=== PATIENT | male | born 1995 | race Caucasian/White ===

== ENCOUNTER 2021-11-13 15:21 | Emergency (ER) | payer OTHER ==
--- OUTSIDE RECORDS SUMMARY | 2021-11-13 15:25 | XMS REPORT | Continuity of Care Document ---
:1995 Author Organization [facility] t Address [address] [place] [address] Care Team Providers Name Role Phone NONE Primary Care Physician Unavailable SALTY CARTER Attending Clinician Unavailable DR GABRIEL Attending Clinician Unavailable MEENAKSHI Attending Clinician Unavailable TEMITOPE Attending Clinician Unavailable MEENAKSHI Attending Clinician Unavailable SALTY CARTER Admitting Clinician Unavailable DR GABRIEL Admitting Clinician Unavailable MEENAKSHI Admitting Clinician Unavailable TEMITOPE Admitting Clinician Unavailable DR KELLY Admitting Clinician Unavailable Payers Payer Name Policy Type Policy Number Effective Date Expiration Date S jayden [id number] 1957 00:00:00 Problems Condition Condition Condition Status Onset Resolution Last Treating Co mments Source Name Details Category Date Date Treatment Clinician Date Upper Upper Problem Active [facility] resp[facility] respirator 7-12 Rufina kes y y 00:00: Memoria infection infection 00 l (LUF/LI V/SA) Allergic All[facility] Problem [facility] (LUF/LI V/SA) Pharyngiti Pharyngiti Problem [facility] (LUF/LI V/SA) Chest pain Chest pain Problem [facility] l (LUF/LI V/SA) Upper Upper Problem Active [facility] respirator respirator 2-20 Rufina kes y y 00:00: Memoria infection infection 00 l (LUF/LI V/SA) Viral Viral Problem Active [facility] syndrome syndrome 2-20 [facility] 00:[facility]: [facility] 00 l (LUF/LI V/SA) Acute Acute Problem Active [facility] bronchitis bronchitis 1-08 Rufina kes 00:00: Memoria 00 l (LUF/LI V/SA) Bronchitis Bronchitis Problem Active 2018-[address] [facility]10 [facility]: [facility] 00 l (LUF/LI V/SA) Gastritis Gastritis Problem Active 2018-[address] [facility]10 [facility] 00:[facility] l (LUF/LI V/SA) Pain in Pain in Problem Active [facility] throat throat 8-18 [facility] l (LUF/LI V/SA) Constipati Constipati Problem Active [facility] on on 6-29 [facility] 00:[facility]: [facility] 00 l (LUF/LI V/SA) Costal Costal Problem Active [facility] chondritis chondritis 4-25 Rufina kes 00:00: Memoria 00 l (LUF/LI V/SA) Sprain of Sprain of Problem Active 2017-[address] [facility] foot foot 1-01 [facility] l (LUF/LI V/SA) Backache Backache Problem [facility] l (LUF/LI V/SA) Streptococ Streptococ Problem Active [facility] kirill sore kirill sore 2-14 [facility] throat throat 00:00: Memoria 00 l (LUF/LI V/SA) Viral Viral Problem Active 2016-[address] [facility] [address] gastroente gastroente 0-06 Rufina kes ritis ritis 00:00: Memoria 00 l (LUF/LI V/SA) Nausea, Nausea, Problem Active 2016-[address] [facility] vomiting vomiting 0-06 [facility] and and 00:00: Memoria diarrhea diarrhea 00 l (LUF/LI V/SA) Allergies, Adverse Reactions, Alerts Allergy Allergy Status Severity Reaction(s) Onset Inactive Treating Comm ents Source Name Type Date Date Clinician Penicill DA Active Unknown [facility] (LUF/LI V/SA) Social History Smoking Status Start Date Stop Date Source Never smoker [facility] Mem orial (LUF/KAUSHIK/SA) Medications Ordered Filled Start Stop Current Ordering Indication Dosage Frequency Signature Comments Components Source Medication Medication Date Date Medication? Clinician (SIG) Name Name albuterol albuterol Yes [address] [facility] (LUF/LI V/SA) albuterol albuterol Yes 2.5mg 4xD [facility] (LUF/LI V/SA) azithromyci azithromyci Yes [address] [facility] (LUF/LI V/SA) azithromyci azithromyci Yes 500mg 1xD [facility] n 500 MG n 500 MG [facility] Oral Tablet Oral Tablet M emoria l (LUF/LI V/SA) bromphenira bromphenira Yes 7.5mL Q5.00H [facility] maleate 0.4 maleate 0.4 M emoria MG/ML / MG/ML / l dextrometho dextrometho ( LUF/LI rphan rphan V/SA) hydrobromid hydrobromid e 2 MG/ML / e 2 MG/ML / pseudoephed pseudoephed rine rine hydrochlori hydrochlori de 6 MG/ML de 6 MG/ML Oral Oral Solution Solution cephalexin cephalexin Yes 500mg 3xD [facility] (LUF/LI V/SA) codeine codeine Yes 10mL Q5.00H [facility] phosphate 2 phosphate 2 L ukes MG/ML / MG/ML / Memoria guaifenesin guaifenesin l 20 MG/ML 20 MG/ML (LUF/LI Oral Oral V/SA) Solution Solution codeine codeine Yes 7.5mL Q5.00H [facility] phosphate 2 phosphate 2 L ukes MG/ML / MG/ML / Memoria guaifenesin guaifenesin l 20 MG/ML 20 MG/ML (LUF/LI Oral Oral V/SA) Solution Solution cyclobenzap cyclobenzap Yes 10mg 3xD [facility] rine rine [facility] (LUF/LI V/SA) epinephrine epinephrine Yes .3mg [facility] (LUF/LI V/SA) ibuprofen ibuprofen Yes 800mg 3xD [facility] 800 MG Oral 800 MG Oral L ukes Tablet Tablet Memoria l (LUF/LI V/SA) ondansetron ondansetron Yes 4mg 4xD [facility] (LUF/LI V/SA) prednisone prednisone Yes 50mg 1xD [facility] 50 MG Oral 50 MG Oral Leonie es Tablet Tablet Memoria l (LUF/LI V/SA) albuterol albuterol Yes [address] [facility] every 4 to [facility] 6 hours as Memoria needed. l (as needed (LUF/LI for V/SA) shortness of breath or wheezing) albuterol albuterol Yes 2.5mg 4xD inhaled [address] times per [facility] day as Memoria needed. l (as needed (LUF/LI for V/SA) shortness of breath or wheezing) azithromyci azithromyci Yes [address] [facility] n n directed [facility] on dose Memoria pack (take l 500 mg (LUF/LI today (day V/SA) 1), then 250 mg for 4 days (days 2-5)) azithromyci azithromyci Yes 500mg 1xD orally [facility] n 500 MG n 500 MG daily [facility] Oral Tablet Oral Tablet M emoria l (LUF/LI V/SA) bromphenira bromphenira Yes 7.5mL Q5.00H orally [facility] mine mine every 4 to [facility] maleate 0.4 maleate 0.4 6 hours as Memoria MG/ML / MG/ML / needed. l dextrometho dextrometho (as needed (LUF/LI rphan rphan for cold V/SA) hydrobromid hydrobromid symptoms) e 2 MG/ML / e 2 MG/ML / pseudoephed pseudoephed rine rine hydrochlori hydrochlori de 6 MG/ML de 6 MG/ML Oral Oral Solution Solution cephalexin cephalexin Yes 500mg 3xD orally [address] [facility] times per [facility] day Memoria l (LUF/LI V/SA) codeine codeine Yes 10mL Q5.00H orally [facility] phosphate 2 phosphate 2 every 4 to [facility] MG/ML / MG/ML / 6 hours as Mem oria guaifenesin guaifenesin needed. l 20 MG/ML 20 MG/ML (as needed ( LUF/LI Oral Oral for cough) V/SA) Solution Solution codeine codeine Yes 7.5mL Q5.00H orally [facility] phosphate 2 phosphate 2 every 4 to [facility] MG/ML / MG/ML / 6 hours as Mem oria guaifenesin guaifenesin needed. l 20 MG/ML 20 MG/ML (as needed ( LUF/LI Oral Oral for cough) V/SA) Solution Solution cyclobenzap cyclobenzap Yes 10mg 3xD orally [facility] rine rine every 8 [facility] hours as Memoria needed. l (PRN for (LUF/LI pain) V/SA) epinephrine epinephrine Yes .3mg intramuscu [facility] larly once [facility] (as a Memoria single l dose) (LUF/LI V/SA) ibuprofen ibuprofen Yes 800mg 3xD orally [address] [facility] 800 MG Oral 800 MG Oral times per [facility] Tablet Tablet day (PRN Memoria for pain) l (LUF/LI V/SA) ondansetron ondansetron Yes 4mg 4xD orally [facility] every 6 [facility] hours as Memoria needed. l (LUF/LI V/SA) prednisone prednisone Yes 50mg 1xD orally [facility] 50 MG Oral 50 MG Oral daily Rufina kes Tablet Tablet Memoria l (LUF/LI V/SA) Vital Signs Vital Name Observation Time Observation Value Comments Source Height 2020-12-08 07:20:00 172.72 CM Weight 2020-12-08 07:20:00 49.1 KG Height 2020-12-02 18:29:00 172.72 CM Weight 2020-12-02 18:29:00 45 KG Height 2020-12-02 13:43:00 172.72 CM Weight 2020-12-02 13:43:00 45 KG Weight 2020-11-29 13:23:00 49.89 KG Weight 2020-09-23 11:42:00 52.8 KG Weight 2019-11-28 18:10:00 50.4 KG Height 2019-08-02 23:57:00 175.26 CM Weight 2019-08-02 23:57:00 51.6 KG Body Temperature 2020-12-08 07:28:00 98.6 [degF] [facility] (LUF/KAUSHIK/SA) Pulse Rate 2020-12-08 07:28:00 88 /min [facility] (LUF/KAUSHIK/SA) Respiratory Rate 2020-12-08 07:28:00 17 /min [facility] (LUF/KAUSHIK/SA) O2% BldC Oximetry 2020-12-08 07:28:00 98 % [facility] (LUF/KAUSHIK/SA) BP Systolic 2020-12-08 07:28:00 113 mm[Hg] [facility] (LUF/KAUSHIK/SA) BP Diastolic 2020-12-08 07:28:00 63 mm[Hg] [facility] (LUF/KAUSHIK/SA) Height 2020-12-08 07:20:00 68 [in_i] [facility] (LUF/KAUSHIK/SA) Weight 2020-12-08 07:20:00 49.1 kg [facility] (LUF/KAUSHIK/SA) BMI (Body Mass Index) 2020-12-08 07:20:00 16.5 kg/m2 [facility] (LUF/KAUSHIK/SA) Body Temperature 2020-12-02 18:29:00 98.7 [degF] [facility] (LUF/KAUSHIK/SA) Pulse Rate 2020-12-02 18:29:00 101 /min [facility] (LUF/KAUSHIK/SA) Respiratory Rate 2020-12-02 18:29:00 20 /min [facility] (LUF/KAUSHIK/SA) O2% BldC Oximetry 2020-12-02 18:29:00 99 % [facility] (LUF/KAUSHIK/SA) BP Systolic 2020-12-02 18:29:00 109 mm[Hg] [facility] (LUF/KAUSHIK/SA) BP Diastolic 2020-12-02 18:29:00 57 mm[Hg] [facility] (LUF/KAUSHIK/SA) Height 2020-12-02 18:29:00 68 [in_i] [facility] (LUF/KAUSHIK/SA) Weight 2020-12-02 18:29:00 45 kg [facility] (LUF/KAUSHIK/SA) BMI (Body Mass Index) 2020-12-02 18:29:00 15.2 kg/m2 [facility] (LUF/KAUSHIK/SA) Body Temperature 2020-12-02 13:43:00 98.4 [degF] [facility] (LUF/KAUSHIK/SA) Pulse Rate 2020-12-02 13:43:00 94 /min [facility] (LUF/KAUSHIK/SA) Respiratory Rate 2020-12-02 13:43:00 16 /min [facility] (LUF/KAUSHIK/SA) O2% BldC Oximetry 2020-12-02 13:43:00 100 % [facility] (LUF/KAUSHIK/SA) BP Systolic 2020-12-02 13:43:00 108 mm[Hg] [facility] (LUF/KAUSHIK/SA) BP Diastolic 2020-12-02 13:43:00 59 mm[Hg] [facility] (LUF/KAUSHIK/SA) Height 2020-12-02 13:43:00 68 [in_i] [facility] (LUF/KAUSHIK/SA) Weight 2020-12-02 13:43:00 45 kg [facility] (LUF/KAUSHIK/SA) BMI (Body Mass Index) 2020-12-02 13:43:00 15.2 kg/m2 [facility] (LUF/KAUSHIK/SA) Body Temperature 2020-11-29 13:23:00 98.2 [degF] [facility] (LUF/KAUSHIK/SA) Pulse Rate 2020-11-29 13:23:00 89 /min [facility] (LUF/KAUSHIK/SA) Respiratory Rate 2020-11-29 13:23:00 16 /min [facility] (LUF/KAUSHIK/SA) O2% BldC Oximetry 2020-11-29 13:23:00 99 % [facility] (LUF/KAUSHIK/SA) BP Systolic 2020-11-29 13:23:00 119 mm[Hg] [facility] (LUF/KAUSHIK/SA) BP Diastolic 2020-11-29 13:23:00 63 mm[Hg] [facility] (LUF/KAUSHIK/SA) Weight 2020-11-29 13:23:00 110 [lb_av] [facility] (LUF/KAUSHIK/SA) Heart Rate 2020-09-23 14:16:00 78 /min [facility] (LUF/KAUSHIK/SA) Pulse Rate 2020-09-23 14:16:00 62 /min [facility] (LUF/KAUSHIK/SA) O2% BldC Oximetry 2020-09-23 14:16:00 100 % [facility] (F/KAUSHIK/SA) Respiratory Rate 2020-09-23 14:15:00 18 /min [facility] (LUF/KAUSHIK/SA) BP Systolic 2020-09-23 14:15:00 108 mm[Hg] [facility] (LUF/KAUSHIK/SA) BP Diastolic 2020-09-23 14:15:00 59 mm[Hg] [facility] (LUF/KAUSHIK/SA) Body Temperature 2020-09-23 11:42:00 98.7 [degF] [facility] (F/KAUSHIK/SA) Weight 2020-09-23 11:42:00 52.8 kg [facility] (F/KAUSHIK/SA) Body Temperature 2019-11-28 18:10:00 97.7 [degF] [facility] (LUF/KAUSHIK/SA) Pulse Rate 2019-11-28 18:10:00 117 /min [facility] (LUF/KAUSHIK/SA) Respiratory Rate 2019-11-28 18:10:00 19 /min [facility] (F/KAUSHIK/SA) O2% BldC Oximetry 2019-11-28 18:10:00 100 % [facility] (LUF/KAUSHIK/SA) BP Systolic 2019-11-28 18:10:00 125 mm[Hg] [facility] (LUF/KAUSHIK/SA) BP Diastolic 2019-11-28 18:10:00 80 mm[Hg] [facility] (LUF/KAUSHIK/SA) Weight 2019-11-28 18:10:00 50.4 kg [facility] (LUF/KAUSHIK/SA) Pulse Rate 2019-08-03 00:22:00 96 /min [facility] (LUF/KAUSHIK/SA) Respiratory Rate 2019-08-03 00:22:00 18 /min [facility] (LUF/KAUSHIK/SA) O2% BldC Oximetry 2019-08-03 00:22:00 99 % [facility] (LUF/KAUSHIK/SA) BP Systolic 2019-08-03 00:22:00 140 mm[Hg] [facility] (LUF/KAUSHIK/SA) BP Diastolic 2019-08-03 00:22:00 82 mm[Hg] [facility] (LUF/KAUSHIK/SA) Body Temperature 2019-08-02 23:57:00 99.1 [degF] [facility] (LUF/KAUSHIK/SA) Height 2019-08-02 23:57:00 69 [in_i] [facility] (LUF/KAUSHIK/SA) Weight 2019-08-02 23:57:00 51.6 kg [facility] (LUF/KAUSHIK/SA) BMI (Body Mass Index) 2019-08-02 23:57:00 16.8 kg/m2 [facility] (LUF/KAUSHIK/SA) Body Temperature 2019-07-20 19:06:00 98.2 [degF] [facility] (LUF/KAUSHIK/SA) Pulse Rate 2019-07-20 19:06:00 110 /min [facility] (LUF/KAUSHIK/SA) Respiratory Rate 2019-07-20 19:06:00 20 /min [facility] (LUF/KAUSHIK/SA) O2% BldC Oximetry 2019-07-20 19:06:00 100 % [facility] (LUF/KAUSHIK/SA) BP Systolic 2019-07-20 19:06:00 109 mm[Hg] [facility] (LUF/KAUSHIK/SA) BP Diastolic 2019-07-20 19:06:00 73 mm[Hg] [facility] (LUF/KAUSHIK/SA) Height 2019-07-20 19:06:00 69 [in_i] [facility] (LUF/KAUSHIK/SA) Weight 2019-07-20 19:06:00 49.8 kg [facility] (LUF/KAUSHIK/SA) BMI (Body Mass Index) 2019-07-20 19:06:00 16.2 kg/m2 [facility] (LUF/KAUSHIK/SA) Body Temperature 2019-07-16 15:22:00 98 [degF] [facility] (LUF/KAUSHIK/SA) Pulse Rate 2019-07-16 15:22:00 102 /min [facility] (LUF/KAUSHIK/SA) Respiratory Rate 2019-07-16 15:22:00 18 /min [facility] (LUF/KAUSHIK/SA) O2% BldC Oximetry 2019-07-16 15:22:00 100 % [facility] (LUF/KAUSHIK/SA) BP Systolic 2019-07-16 15:22:00 114 mm[Hg] [facility] (LUF/KAUSHIK/SA) BP Diastolic 2019-07-16 15:22:00 58 mm[Hg] [facility] (LUF/KAUSHIK/SA) Height 2019-07-16 15:22:00 69 [in_i] [facility] (LUF/KAUSHIK/SA) Weight 2019-07-16 15:22:00 51.4 kg [facility] (LUF/KAUSHIK/SA) BMI (Body Mass Index) 2019-07-16 15:22:00 16.7 kg/m2 [facility] (LUF/KAUSHIK/SA) Body Temperature 2018-11-19 12:45:00 98.1 F [facility] (LUF/KAUHSIK/SA) Pulse Rate 2018-11-19 12:45:00 94 /min [facility] (LUF/KAUSHIK/SA) Respiratory Rate 2018-11-19 12:45:00 18 /min [facility] (LUF/KAUSHIK/SA) O2% BldC Oximetry 2018-11-19 12:45:00 100 % [facility] (LUF/KAUSHIK/SA) BP Systolic 2018-11-19 12:45:00 104 mm[Hg] [facility] (LUF/KAUSHIK/SA) BP Diastolic 2018-11-19 12:45:00 63 mm[Hg] [facility] (LUF/KAUSHIK/SA) Height 2018-11-19 12:45:00 67 in [facility] (LUF/KAUSHIK/SA) Weight Measured 2018-11-19 12:45:00 109.98 lbs [facility] (LUF/KAUSHIK/SA) BMI (Body Mass Index) 2018-11-19 12:45:00 17.2 kg/m2 [facility] (LUF/KAUSHIK/SA) Body Temperature 2018-09-15 10:59:00 98.6 F [facility] (LUF/KAUSHIK/SA) Pulse Rate 2018-09-15 10:59:00 74 /min [facility] (LUF/KAUSHIK/SA) Respiratory Rate 2018-09-15 10:59:00 18 /min [facility] (F/KAUSHIK/SA) O2% BldC Oximetry 2018-09-15 10:59:00 100 % [facility] (LUF/KAUSHIK/SA) BP Systolic 2018-09-15 10:59:00 107 mm[Hg] [facility] (LUF/KAUSHIK/SA) BP Diastolic 2018-09-15 10:59:00 58 mm[Hg] [facility] (LUF/KAUSHIK/SA) Height 2018-09-15 10:59:00 68 in [facility] (LUF/KAUSHIK/SA) Weight Measured 2018-09-15 10:59:00 111.55 lbs [facility] (LUF/KAUSHIK/SA) BMI (Body Mass Index) 2018-09-15 10:59:00 17.1 kg/m2 [facility] (LUF/KAUSHIK/SA) Body Temperature 2018-03-24 15:06:00 98.4 F [facility] (LUF/KAUSHIK/SA) Pulse Rate 2018-03-24 15:06:00 80 /min [facility] (LUF/KAUSHIK/SA) Respiratory Rate 2018-03-24 15:06:00 18 /min [facility] (LUF/KAUSHIK/SA) O2% BldC Oximetry 2018-03-24 15:06:00 100 % [facility] (LUF/KAUSHIK/SA) BP Systolic 2018-03-24 15:06:00 117 mm[Hg] [facility] (LUF/KAUSHIK/SA) BP Diastolic 2018-03-24 15:06:00 56 mm[Hg] [facility] (LUF/KAUSHIK/SA) Height 2018-03-24 15:06:00 69 in [facility] (LUF/KAUSHIK/SA) Weight Measured 2018-03-24 15:06:00 114.86 lbs [facility] (LUF/KAUSHIK/SA) BMI (Body Mass Index) 2018-03-24 15:06:00 17 [facility] (LUF/KAUSHIK/SA) Body Temperature 2018-01-02 15:08:00 97.6 F [facility] (LUF/KAUSHIK/SA) Respiratory Rate 2018-01-02 15:08:00 18 /min [facility] (LUF/KAUSHIK/SA) O2% BldC Oximetry 2018-01-02 15:08:00 98 % [facility] (LUF/KAUSHIK/SA) BP Systolic 2018-01-02 15:08:00 136 mm[Hg] [facility] (LUF/KAUSHIK/SA) BP Diastolic 2018-01-02 15:08:00 88 mm[Hg] [facility] (LUF/KAUSHIK/SA) Height 2018-01-02 14:51:00 68.5 in [facility] (LUF/KAUSHIK/SA) Weight Measured 2018-01-02 14:51:00 117.28 lbs [facility] (LUF/KAUSHIK/SA) BMI (Body Mass Index) 2018-01-02 14:51:00 17.7 [facility] (LUF/KAUSHIK/SA) Body Temperature 2017-08-23 20:42:00 98.5 F [facility] (LUF/KAUSHIK/SA) Respiratory Rate 2017-08-23 20:42:00 18 /min [facility] (LUF/KAUSHIK/SA) O2% BldC Oximetry 2017-08-23 20:42:00 100 % [facility] (LUF/KAUSHIK/SA) BP Systolic 2017-08-23 20:42:00 109 mm[Hg] [facility] (LUF/KAUSHIK/SA) BP Diastolic 2017-08-23 20:42:00 69 mm[Hg] [facility] (LUF/KAUSHIK/SA) Weight Measured 2017-08-23 20:38:00 114.19 lbs [facility] (LUF/KAUSHIK/SA) Body Temperature 2017-07-07 10:19:00 99.3 F [facility] (LUF/KAUSHIK/SA) Respiratory Rate 2017-07-07 10:19:00 18 /min [facility] (LUF/KAUSHIK/SA) O2% BldC Oximetry 2017-07-07 10:19:00 100 % [facility] (LUF/KAUSHIK/SA) BP Systolic 2017-07-07 10:19:00 118 mm[Hg] [facility] (LUF/KAUSHIK/SA) BP Diastolic 2017-07-07 10:19:00 73 mm[Hg] [facility] (LUF/KAUSHIK/SA) Weight Measured 2017-07-07 10:17:00 111.55 lbs [facility] (LUF/KAUSHIK/SA) BP Systolic 2017-05-20 02:04:00 114 mm[Hg] [facility] (LUF/KAUSHIK/SA) BP Diastolic 2017-05-20 02:04:00 66 mm[Hg] [facility] (LUF/KAUSHIK/SA) Height 2017-05-20 02:04:00 69 in [facility] (LUF/KAUSHIK/SA) Weight Measured 2017-05-20 02:04:00 116.18 lbs [facility] (LUF/KAUSHIK/SA) BMI (Body Mass Index) 2017-05-20 02:04:00 17.2 [facility] (LUF/KAUSHIK/SA) Body Temperature 2017-05-20 02:00:00 99.9 F [facility] (LUF/KAUSHIK/SA) Respiratory Rate 2017-05-20 02:00:00 20 /min [facility] (LUF/KAUSHIK/SA) O2% BldC Oximetry 2017-05-20 02:00:00 98 % [facility] (F/KAUSHIK/SA) Procedures This patient has no known procedures. Encounters Start End Encounter Admission Attending Care Care Encounter Source Date/Time Date/Time Type Type Clinicians Facility Department ID 2020-12-08 2020-12-08 BRONCHITIS 1 BHAVNA [facility] [id number] [facility] [address] 06:31:00 09:36:00 NOT SPEC GABY [facility] ACUTE/TOLL GATE TENDER l N (LUF/LI V/SA) 2020-12-08 2020-12-08 Inpatient [facility] [id number] [facility] [address] 00:00:00 00:00:00 [place] [id number] [facility], [id number] Memor ia [id number] (LUF/LI A[address], V/SA) [place] [address] 2020-12-08 2020-12-08 Inpatient [facility] [id number] [facility] 00:00:00 00:00:00 [place] [id number] [facility], [id number] Memor ia [address] [id number] l [address] (LUF/LI A[address], V/SA) [place] [address] 2020-12-02 2020-12-02 ALLERGY [facility] [id number] [facility] [address] 18:08:00 20:33:[address] MIDWAY Leonie es D INITIAL [place] [address] (LUF/LI A[address], V/SA) [place] [address] 2020-12-02 2020-12-02 ACUTE UP [facility] [id number] [facility] [address] 13:35:00 15:45:00 RESPIR[address] MIDWAY Leonie Y [place] [address] (LUF/[address], V/SA) [place] [address] 2020-12-02 2020-12-02 Inpatient [facility] [id number] [id number] 00:[facility] 00:00:00 MIDW[address] [id number] [facility], [id number] Memor ia [address] [id number] l [address] (LUF/LI A[address], V/[place]) [place] [address] 2020-12-02 2020-12-02 [facility]patient [facility] [id number] 00:00:00 00:00:00 MIDWAY [id number] [facility], [id number] Memor ia [address] [id number] l [address] (LUF/LI A[address], V/SA) [place], [place] [address] 2020-12-02 2020-12-02 [facility]patient [facility] [id number] 00:00:00 00:00:00 MIDWAY [id number] [facility], [id number] Memor [facility] [address] [id number] l [place]ST[place] (LUF/LI A[address], V/SA) SELINA, [place] [address] 2020-12-02 2020-12-02 Inpatient [facility] 28ed [id number] [facility] [address] 00:00:00 00:00:00 MIDW[address] [id number] [facility], [id number] [facility] [address] [id number] l [place]STINA (LUF/LI AVE, V/SA) RUFINAJASSI, [facility] 2020-11-29 2020-11-29 ACUTE [facility] [id number] [facility] [address] 13:17:00 14:25:00 PHARYNGITI [facility] UNSPEC[facility] [address] l D [address]ST[place] (LUF/LI A[address], V/SA) SELINA, [place] [address] 2020-11-29 2020-11-29 Inpatient [facility] 40fd [id number] [facility] 00:00:[facility] [place] [id number] [facility], [id number] Mem[facility] [address] [id number] l [place] (LUF/LI A[address], V/SA) SELINA, [facility] 2020-11-29 2020-11-29 Inpatient [facility] [id number] 00:00:00 00:00:00 MID[place]AY [id number] [facility], [id number] Mem[facility] [address] [id number] l [place] (LUF/LI AVE, V/[place]) [place] [address] 2020-09-23 2020-09-23 CHEST PAIN E CARTER, [facility] [id number] [facility] 11:39:00 14:32:00 [facility]PECIFIE [facility] [address] ([address]F/[address], V/SA) [place] [address] 2020-09-23 2020-09-23 Inpatient [facility] [id number] [facility]:00 00:00:00 MIDWAY [id number] [facility], [id number] [facility] [address] [id number] l [place] (LUF/LI A[address], V/SA) [place] [address] 2020-09-23 2020-09-23 Inpatient [facility] [id number] [facility] 00:[facility]:00 00:00:00 [place] [id number] [facility], [id number] [facility] [address] [id number] l [address] ([address]F/[address], V/SA) [place] [address] 2019-11-28 2019-11-28 CONCUSS 1 RAUL, [facility] [facility] [place] [id number] 17:44:00 21:06:00 LOC UNS [facility] INITIAL [address] ([address], V/SA) [place] [address] 2019-08-02 2019-08-03 COUGH [facility] [place] [id number] 23:52:00 00:44:00 [facility] [address], V/SA) [place] [address] 2019-07-20 2019-07-20 VIRAL 1 MEENAKSHI, [facility] [place] [id number] 18:58:00 20:30:00 INFECTION [facility] Luke s UNSPECIFIE [place], Memor ia D [address] ([address], V/SA) [place] [address] 2019-07-16 2019-07-16 ACUTE UP [facility] [place] [id number] [facility] 15:07:00 15:48:00 [facility] [place] [address] ([address], V/SA) [place] [address] 2018-11-19 2018-11-19 CONSTIPATI 1 MEENAKSHI, [facility] [place] [id number] 12:43:00 13:52:00 ON [facility] UNSPECIFIE [place], [facility] D [address], V/SA) [place] [address] 2018-09-15 2018-09-15 NAYE MARTINEZ, [facility] [place] [id number] 10:56:00 11:50:00 [facility] [place], [facility] SYND [address] ([address]F/LI [address], V/SA) [place] [address] 2018-03-24 2018-03-24 Inpatient 1 KELLY, [facility] [place] [id number] 14:32:00 16:00:00 [facility] [address] ([address], V/SA) [place] [address] 2018-01-02 2018-01-02 MUSCLE 1 TRWILFREDO, [facility] [place] [id number] 14:44:00 18:45:00 [facility] Leonie es BACK [place], [facility] [address], V/SA) [place] [address] 2017-08-23 2017-08-23 LOW BACK CARTER, [facility] [place] [id number] [facility] 20:27:00 23:10:00 PAIN [facility] kes [place], [facility] [address] ([address], V/SA) [place] [address] 2017-07-07 2017-07-07 Inpatient BETTS, ORA [facility] [id number] 10:02:00 10:57:00 EAST [facility] [address] ([address], V/SA) [place] [address] 2017-05-20 2017-05-20 ACUTE UP 1 RAUL, [place] [id number] [facility] 01:31:00 04:25:00 RESPIRATOR [facility] INFECTION [address] ([address]F/LI [address], V/SA) [place] [address] 2017-05-19 2017-05-19 PROC&TX TRUX, [facility] [id number] 13:30:00 14:05:00 NOT ORTHODOX [facility] s CARRIED [facility] OUT PT [address] ([address]F/[address], V/SA) [place] [address] Results Test Description Test Time Test Comments Results Result Comments Source RESPIRATORY PANEL 2 (IN HOUSE) 2020-12-08 09:05:00 Test Item Value Reference Range Interpretation Comme nts Adenovirus (test code = ADENO) Not Detected Not Detected N COVID-19, Real Time PCR-MOUSTAPHA (test code = COVID) Negative Coronarvirus 229 E (test code = [id number]) Not Detected Not Detected N Coronavirus HKU1 (test code = CORNHKU) Not Detected Not Detected N Coronavirus NL63 (test code = CORNL63) Not Detected Not Detected N Coronavirus OC43 (test code = CORNOC) Not Detected Not Detected N Human Metapneumovirus (test code = HUMMETA) Not Detected Not Detect ed N Human Rhinovirus/Enterovirus (test code = RHIENT) Detected Not Detected A Influenza A (test code = FLUAH3) Not Detected Not Detected N Parainfluenza virus 1 (test code = PARVIR1) Not Detected Not Detect ed N Parainfluenza virus 2 (test code = PARVIR2) Not Detected Not Detect ed N Parainfluenza virus 3 (test code = PARVIR3) Not Detected Not Detect ed N Parainfluenza virus 4 (test code = PARVIR4) Not Detected Not Detect ed N Respiratory Syncytial Virus (test code = RSVBF) Not Detected Not De tected N Bordetella parapertussis (test code = BORPARA) Not Detected Not Det ected N Bordetella pertussis (test code = BORPERT) Not Detected Not Detecte d N Chlamydia pneumoniae (test code = CHLPNEU) Not Detected Not Detecte d N Mycoplasma pneumoniae (test code = MYCOPNEU) Not Detected Not Detec alvaro N Influenza A subtype H1-2009 (test code = [id number]) Not Detected Not Detected N Influenza B (test code = INFLUB) Not Detected Not Detected N XR CHEST AP/PA 1 [id number] 08:28:57 [facility]Name: CASSIA LOGAN : 1995 Sex: MProcedure: XR CHEST AP/PA 1 VIEWOrder Date: 12/08/2020 7:29 AMOrdering Provider: GABY Paredesinical Indication: [id number]: DyspneaComparison: September 23, 2020Findings:Cardiac size is normal.Pulmonary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 Date: 05/20/2017 2:40 AMOrdering Provider: GABY Paredesinical Indication: COPD: Chest- COPDComparison: NoneFindings:The lungs are clear and well-aerated. No pleural effusion or pneumothorax.Cardiac silhouette is normal in size.Impression:No acute pulmonary process.This final report was electronically signed by Dr Jennifer Vilchis MD 05/20/20176:21 AMDictated By: ANN VILCHISKDate: 05/20/2017 06:27CBC WITH AUTO [id number] 04:08:00 Test Item Value Reference Range Interpretation Comments WBC (test code = 3.87 10\\S\\3/ul 4.80-10.80 L WBC) RBC (test code = 4.20 10\\S\\6/ul 4.70-6.10 L RBC) Hemoglobin (test 13.5 gm/dl 14.0-18.0 L code = HGB) Hematocrit (test 39.3 % 42.0-50.0 L code = HCT) MCV (test code = 93.6 fL 80.0-94.0 MCV) MCH (test code = 32.1 pg 27.0-31.0 H MCH) MCHC (test code = 34.4 gm/dl 33.0-37.0 MCHC) RDW (test code = 12.3 % 11.5-14.5 RDWVC) Platelet (test 127 10\\S\\3/ul 130-400 L code = PLT) MPV (test code = 11.6 fL 7.4-10.4 A "NOT MEASUR ED" MPV) RESULTS ARE DISPLAYED WHEN THE INSTRUMENT HAS A SUPPRESSED OR UNREPORTABLE RESULT. THIS W ILL MOST OFTEN HAPP EN WITH THE MPV WH EN THERE IS AN ABNORMAL PLATEL ET DISTRIBUTION DU E TO A CRITICAL L OW VALUE OR PLATEL ET CLUMPING. THE RDW MAY BE SUPPRESS ED IF THERE ARE MULTIPLE PEAKS PRESENT ON THE RBC HISTOGRAM. IN THIS CASE, A MANUAL REVIEW O F THE SLIDE WILL BE PERFORMED, AND RBC MORPHOLOGY WILL BE NOTED ON THE REPORT. NE% (test code = 62.8 % 42.0-75.0 NE) LY% (test code = 19.4 % 13.0-42.0 LY) MO% (test code = 16.0 % 4.0-14.0 H MO) EO% (test code = 1.0 % 1.0-3.0 EO) BA% (test code = 0.5 % 1.0-3.0 L BA) IG% (test code = 0.3 % 0.0-0.4 IG%) NRBC, Auto (test 0 /100WBC 0-2 code = NRBC_AUTO) Bands (test code = 7 % 0-2 H The value no value BANDM) originally released by on ############### was changed to 7 by [id number] on 05/20/2017 04:0 8 Neutrophils (test 55 10\\S\\3/ul 42-75 The value no value code = NEUTR) originally released by on ############### was changed to 55 by [id number] on 05/20/2017 04:0 8 Lymphocytes (test 20 % 13-42 The value no value code = LYMPH) originally released by on ############### was changed to 20 by [id number] on 05/20/2017 04:0 8 Monocytes (test 18 % 4-14 H The value no value code = MONOS) originally released by on ############### was changed to 18 by [id number] on 05/20/2017 04:0 8 Normal Morphology Normal RBC and Normal RBC \\T\\ A The va lue no value (test code = NRCM) WBC Morphology WBC origina lly Morphology,Normal released b y on WBC RBC and ############### Platelet was changed to Morphology Normal RBC and WBC Morphology by [id number] on 05/20/2017 04:0 8 Platelet Decreased The value no va lue Morphology (test platelets originally code = PLTMORPH) released by on ############### was changed to Decreased platelets by [id number] on 05/20/2017 04:0 8 FLU [id number] 03:52:00 Test Item Value Reference Range Interpretation Comments Flu A Screen (test Negative Negative N EFFECTIVE 05/12/2013 - A code = FLUA) method change h as occurred. A mo lecular method for Flu testing will replace th e current method. Both F rufina A and Flu B will be t ested and results will co ntinue to be listed as "N egative or Positive". Whi le this method is more specific in the detectio n of both strains, confir matory testing is avai lable upon request. ldh Flu B Screen (test Negative Negative N EFFECTIVE 05/12/2013 - A code = FLUB) method change h as occurred. A mo lecular method for Flu testing will replace th e current method. Both F rufina A and Flu B will be t ested and results will co ntinue to be listed as "N egative or Positive". Whi le this method is more specific in the detectio n of both strains, confir matory testing is avai lable upon request. ldh If a specimen is collected by a nurse, then you MUST fill out the Collected and Collected By [email or web address] [id number] 03:39:00 Test Item Value Reference Range Interpretation Comments Glucose (test code 110 mg/dl 75-110 = GLU) BUN (test code = 8.0 mg/dl 6.0-17.0 BUN) Creatinine (test 1.1 mg/dl 0.4-1.2 code = CREA) Sodium (test code = 143 mmol/l 137-145 NA) Potassium (test 4.0 mmol/l 3.5-5.0 code = K) Chloride (test code 106 mmol/l 98-107 = CL) CO2 (test code = 25 mmol/l 22-30 CO2) Calcium (test code 9.3 mg/dl 8.4-10.2 = CALC) T Protein (test 6.8 gm/dl 5.1-8.7 code = TP) Albumin (test code 4.0 gm/dl 3.5-4.6 = ALB) A/G Ratio (test 1.4 % 1.1-2.2 code = AGRAT) AST (SGOT) (test 37 U/L 11-36 H code = AST) ALT (SGPT) (test 33 U/L 11-40 code = ALT) Alkaline Phos (test 49 U/L 47-114 code = ALKP) Total Bilirubin 0.5 mg/dl 0.2-1.2 (test code = TBIL) Globulin (test code 2.8 gm/dl 2.3-3.5 = GLOBU) Calcium, Corrected 9.3 mg/dl 8.4-10.2 Various f ormulas exist (test code = for corrected s carmina CALCCORR) calcium results , each yielding differ ent values. This corrected resul t was based on the fo rmula: Corrected Calci um = SerumCalcium + [0.8 * ( 4 - SerumAlbu min)] EGFR if >60 [place]que (test code mL/min/1.73m\\ = EGFRAA) S\\2 EGFR if Non- >60 Estimate d Glomerular [place]gasque (test code mL/min/1.73m\\ Filtrat ion Rate (eGFR) = EGFRNA) S\\2 Reference Inter vals Decision Points for 18 years and older and average body ma ss: >= 60 Does not exc lude kidney disease. 30 - 59 Suggests modera te chronic kidney disease and indicat es the need for furthe r investigation including asses sment of proteinuria and cardiovascular factors. < 30 Usually in dicates a need for refe rral for assessment and management of c hronic kidney failure. URINALYSIS WITH [id number] 18:25:00 Test Item Value Reference Range Interpretation Comments Color (test code = UCOLR) YELLOW Clarity (test code = UCLAR) CLEAR Glucose (test code = UGLUC) NEGATIVE NEGATIVE N Bilirubin (test code = UBILI) NEGATIVE NEGATIVE N Ketones (test code = UKET) NEGATIVE NEGATIVE N Specific Pimento (test code = USPGR) 1.010 1.005-1.030 A Blood (test code = UBLD) NEGATIVE NEGATIVE N PH (test code = UPH) 7.0 4.5-8.0 A Protein (test code = UPROT) NEGATIVE NEGATIVE N Urobilinogen (test code = U UROB) 0.2 >0.2 N Nitrite (test code = UNITR) NEGATIVE NEGATIVE N Leukocyte Esterase (test code = NEGATIVE NEGATIVE N ULEUK) WBC (test code = WBCUR) 0-5 0-5 N RBC (test code = RBCUR) 0-5 0-5 N Epithial Cells (test code = U EPI) 0-10 0-10 N Mucous (test code = UMUC) Trace None Seen A Bacteria (test code = UBACT) 1+ None Seen,Trace A [id number] 17:34:00 Test Item Value Reference Range Interpretation Comments Glucose (test code 83 mg/dl 75-110 = GLU) BUN (test code = 9.0 mg/dl 6.0-17.0 BUN) Creatinine (test 0.9 mg/dl 0.4-1.2 code = CREA) Sodium (test code = 145 mmol/l 137-145 NA) Potassium (test 4.5 mmol/l 3.5-5.0 code = K) Chloride (test code 106 mmol/l 98-107 = CL) CO2 (test code = 26 mmol/l 22-30 CO2) Calcium (test code 10.1 mg/dl 8.4-10.2 = CALC) T Protein (test 8.0 gm/dl 5.1-8.7 code = TP) Albumin (test code 4.7 gm/dl 3.5-4.6 H = ALB) A/G Ratio (test 1.4 % 1.1-2.2 code = AGRAT) AST (SGOT) (test 34 U/L 11-36 code = AST) ALT (SGPT) (test 27 U/L 11-40 code = ALT) Alkaline Phos (test 60 U/L 47-114 code = ALKP) Total Bilirubin 0.7 mg/dl 0.2-1.2 (test code = TBIL) Globulin (test code 3.3 gm/dl 2.3-3.5 = GLOBU) Calcium, Corrected 9.5 mg/dl 8.4-10.2 Various f ormulas exist (test code = for corrected s carmina CALCCORR) calcium results , each yielding differ ent values. This corrected resul t was based on the fo rmula: Corrected Calci um = SerumCalcium + [0.8 * ( 4 - SerumAlbu min)] EGFR if >60 [place]que (test code mL/min/1.73m\\ = EGFRAA) S\\2 EGFR if Non- >60 Estimate d Glomerular [place]gasque (test code mL/min/1.73m\\ Filtrat ion Rate (eGFR) = EGFRNA) S\\2 Reference Inter vals Decision Points for 18 years and older and average body ma ss: >= 60 Does not exc lude kidney disease. 30 - 59 Suggests modera te chronic kidney disease and indicat es the need for furthe r investigation including asses sment of proteinuria and cardiovascular factors. < 30 Usually in dicates a need for refe rral for assessment and management of c hronic kidney failure. CBC WITH AUTO [id number] 16:36:00 Test Item Value Reference Range Interpretation Comments WBC (test code = 7.98 10\\S\\3/ul 4.80-10.80 WBC) RBC (test code = 4.73 10\\S\\6/ul 4.70-6.10 RBC) Hemoglobin (test 15.1 gm/dl 14.0-18.0 code = HGB) Hematocrit (test 44.0 % 42.0-50.0 code = HCT) MCV (test code = 93.0 fL 80.0-94.0 MCV) MCH (test code = 31.9 pg 27.0-31.0 H MCH) MCHC (test code = 34.3 gm/dl 33.0-37.0 MCHC) RDW (test code = 12.4 % 11.5-14.5 RDWVC) Platelet (test code 168 10\\S\\3/ul 130-400 = PLT) MPV (test code = 11.5 fL 7.4-10.4 A "NOT MEASUR ED" MPV) RESULTS ARE DIS PLAYED WHEN THE INSTRU MENT HAS A SUPPRESSE D OR UNREPORTABLE RE SULT. THIS WILL MOST OFTEN HAPPEN WITH THE MPV WHEN THERE IS A N ABNORMAL PLATEL ET DISTRIBUTION DU E TO A CRITICAL LOW VA LUE OR PLATELET CLUMPI NG. THE RDW MAY BE SUPPRESSED IF T HERE ARE MULTIPLE PE AKS PRESENT ON THE RBC HISTOGRAM. IN THIS CASE, A MANUAL REVIEW OF THE SLIDE WI LL BE PERFORMED, AND RBC MORPHOLOGY WILL BE NOTED ON THE RE PORT. NE% (test code = 62.2 % 42.0-75.0 NE) LY% (test code = 26.3 % 13.0-42.0 LY) MO% (test code = 8.4 % 4.0-14.0 MO) EO% (test code = 2.3 % 1.0-3.0 EO) BA% (test code = 0.5 % 1.0-3.0 L BA) IG% (test code = 0.3 % 0.0-0.4 IG%)
[2021-11-13 15:52] LABS: Urine Blood Negative (Negative); Urine Glucose Negative (Negative); Urine Protein Negative (Negative)
[2021-11-13 15:53] LABS: Absolute Lymphocytes (CBC) 2.8 K/uL (0.7-4.9); Hematocrit 42.8 % (39.6-49.0); Lymphocytes % 33.1 % (15.3-44.8); MPV 9.5 fL (7.6-11.3); RBC Red Blood Cell Count 4.55 M/uL (4.33-5.43)
[2021-11-13] MEDS ORDERED: NA CHLORIDE 0.9% 1,000 ML ONE (16:04)
[2021-11-13] MEDS ORDERED: ONDANSETRON 4 MG/2 ML VIAL ONE (16:04)
[2021-11-13 16:14] LABS: Albumin 3.9 g/dL (3.4-5.0); Bilirubin Total 0.5 mg/dL (0.2-1.0); Potassium 3.8 mmol/L (3.5-5.1); Protein, Total 7.6 g/dL (6.4-8.2)
--- NOTE | 2021-11-13 17:50 | RAD REPORT ---
EXAM DESCRIPTION: CTAbdomen Pelvis W Contrast - 11/13/2021 5:34 pm CLINICAL HISTORY: Abdominal pain, acute, nonlocalized COMPARISON: No comparisons TECHNIQUE: CT of the abdomen and pelvis was performed. All CT scans are performed using dose optimization technique as appropriate and may include automated exposure control or mA/KV adjustment according to patient size. FINDINGS: Lower chest: No acute abnormality. Liver: Mild nonspecific periportal edema. Biliary: Contracted gallbladder. Wall thickening is likely related to periportal edema Stomach: No significant focal abnormality. Duodenum: No significant focal abnormality. Pancreas: No significant abnormality. Spleen: No significant abnormality. Adrenal: No suspicious lesions. Kidney/ureter: No hydronephrosis. No renal calculi. Retroperitoneum: No retroperitoneal adenopathy. Vascular: No aneurysm. Bowel: No significant focal abnormality. Normal appendix Peritoneum: No ascites or free air. Bladder: Grossly unremarkable. Reproductive: No adnexal masses. Bones: No acute fracture. Other: n/a IMPRESSION: No definite acute intra-abdominal abnormality. The appendix is normal. Nonspecific perip ortal edema with contracted gallbladder is probably of little significance but could correlate with L FTs to exclude underlying acute hepatic processes.
--- NOTE | 2021-11-13 18:31 | EDPHYS ---
Physician Documentation [facility] Name: Jayson Melendez Age: 26 yrs Sex: Male : 1995 Arrival Date: 11/13/2021 Time: 15:22 Bed 10 Private MD: ED Physician Artis Crenshaw HPI: 11/13 16:29 This 26 yrs old Male presents to ER via Ambulatory with complaints of Abdominal Pain, kdr Sent By Mojgan. 16:29 This 26 yrs old Male presents to ER via Ambulatory with complaints of Abdominal Pain, kdr Sent By Mojgan. 16:29 The patient presents with abdominal pain in the epigastric area, in the upper abdomen. kdr Onset: The symptoms/episode began/occurred gradually, 3 day(s) ago. The symptoms radiate to the right flank. Associated signs and symptoms: Pertinent positives: nausea, Pertinent negatives: anorexia, blood in stools, chest pain, constipation, diarrhea, dysuria, fever, headache, hematuria, palpitations, shortness of breath, testicular pain, vomiting. The symptoms are described as achy, constant, steady. Modifying factors: The symptoms are alleviated by nothing, the symptoms are aggravated by nothing. Severity of pain: At its worst the pain was severe in the emergency department the pain has improved mildly. The patient has experienced similar episodes in the past, chronically, but today's symptoms are worse, more painful. The patient has been recently seen by a physician: the patient's primary care provider, Dr. Ulrich. Historical: - Allergies: 15:30 PENICILLINS; aa5 - Home Meds: 15:30 levothyroxine 50 mcg tab 1 tab once daily [Active]; aa5 15:31 gabapentin 100 mg oral tab as needed [Active]; aa5 - PMHx: 15:30 Hypothyroidism; aa5 15:31 Chronic back pain; aa5 - PSHx: 15:30 None; aa5 - Immunization history:: Adult Immunizations unknown. - Social history:: Smoking status: Patient reports the use of cigarette tobacco products, smokes one pack cigarettes per day. ROS: 16:29 Constitutional: Negative for fever, chills, and weight loss, Eyes: Negative for injury, kdr pain, redness, and discharge, Neck: Negative for injury, pain, and swelling, Cardiovascular: Negative for chest pain, palpitations, and edema, Respiratory: Negative for shortness of breath, cough, wheezing, and pleuritic chest pain, Back: Negative for injury and pain, : Negative for injury, bleeding, discharge, and swelling, MS/Extremity: Negative for injury and deformity, Skin: Negative for injury, rash, and discoloration, Neuro: Negative for headache, weakness, numbness, tingling, and seizure activity. Psych: Negative for depression, anxiety, suicide ideation, homicidal ideation, and hallucinations, Allergy/Immunology: Negative for hives, rash, and allergies, Endocrine: Negative for neck swelling, polydipsia, polyuria, polyphagia, and marked weight changes, Hematologic/Lymphatic: Negative for swollen nodes, abnormal bleeding, and unusual bruising. 16:29 Abdomen/GI: Positive for abdominal pain, nausea, of the anterior aspect of right lateral abdomen, posterior aspect of right lateral abdomen and right lower quadrant. Exam: 16:29 Constitutional: This is a well developed, well nourished patient who is awake, alert, kdr and in no acute distress. Head/Face: Normocephalic, atraumatic. Eyes: Pupils equal round and reactive to light, extra-ocular motions intact. Lids and lashes normal. Conjunctiva and sclera are non-icteric and not injected. Cornea within normal limits. Periorbital areas with no swelling, redness, or edema. Neck: Trachea midline, no thyromegaly or masses palpated, and no cervical lymphadenopathy. Supple, full range of motion without nuchal rigidity, or vertebral point tenderness. No Meningismus. Chest/axilla: Normal chest wall appearance and motion. Nontender with no deformity. No lesions are appreciated. Cardiovascular: Regular rate and rhythm with a normal S1 and S2. No gallops, murmurs, or rubs. Normal PMI, no JVD. No pulse deficits. Respiratory: Lungs have equal breath sounds bilaterally, clear to auscultation and percussion. No rales, rhonchi or wheezes noted. No increased work of breathing, no retractions or nasal flaring. Back: No spinal tenderness. No costovertebral tenderness. Full range of motion. Skin: Warm, dry with normal turgor. Normal color with no rashes, no lesions, and no evidence of cellulitis. MS/ Extremity: Pulses equal, no cyanosis. Neurovascular intact. Full, normal range of motion. Neuro: Awake and alert, GCS 15, oriented to person, place, time, and situation. Cranial nerves II-XII grossly intact. Motor strength 5/5 in all extremities. Sensory grossly intact. Cerebellar exam normal. Normal gait. Psych: Awake, alert, with orientation to person, place and time. Behavior, mood, and affect are within normal limits. 16:29 Abdomen/GI: Inspection: abdomen appears normal, Bowel sounds: active, all quadrants, Palpation: soft, mild abdominal tenderness, in the anterior aspect of right lateral abdomen, posterior aspect of right lateral abdomen and right lower quadrant. Vital Signs: 15:31 BP 121 / 67; Pulse 95; Resp 16 S; Temp 99.3(TE); Pulse Ox 100% on R/A; Weight 52.21 kg aa5 (R); Height 5 ft. 8 in. (172.72 cm) (R); 16:33 BP 111 / 67; Pulse 58; Resp 16; Pulse Ox 100% on R/A; jb4 18:39 BP 122 / 71; Pulse 59; Resp 16; Pulse Ox 100% on R/A; jb4 15:31 Body Mass Index 17.50 (52.21 kg, 172.72 cm) aa5 MDM: 16:29 Data reviewed: vital signs, nurses notes, lab test result(s), radiologic studies. kdr Counseling: I had a detailed discussion with the patient and/or guardian regarding: the historical points, exam findings, and any diagnostic results supporting the discharge/admit diagnosis, lab results, radiology results, the need for outpatient follow up. 18:30 Patient medically screened. [facility] 11/13 15:28 Order name: CBC with Diff; Complete Time: 16:29 kdr 11/13 15:28 Order name: CMP; Complete Time: 16:29 kdr 11/13 15:28 Order name: Lipase; Complete Time: 16:29 kdr 11/13 15:28 Order name: CT Abd/Pelvis - IV Contrast Only; Complete Time: 17:54 [facility] 11/13 15:39 Order name: COVID-19 SARS RT PCR (Document "Date of Onset" if Symptomatic); Complete kj1 Time: 17:44 11/13 15:53 Order name: Urine Dipstick-Ancillary; Complete Time: 16:29 EDMS 11/13 15:28 Order name: IV Saline Lock; Complete Time: 16:02 kdr 11/13 15:28 Order name: Labs collected and sent; Complete Time: 16: kdr 11/13 15:29 Order name: Urine Dipstick-Ancillary (obtain specimen); Complete Time: 16:02 kdr Administered Medications: 15:37 Not Given (Physician Discretion): Xopenex (levalbuterol) (3) 1.25 mg Inhalation once ss 15:37 Not Given (Physician Discretion): SOLU-Medrol (methylPrednisoLONE) 60 mg IVP once ss 16:02 Drug: NS 0.9% 1000 ml Route: IV; Rate: 1 bolus; Site: right antecubital; jb4 17:00 Follow up: Response: No adverse reaction; Marked relief of symptoms; IV Status: jb4 Completed infusion; IV Intake: 1000ml 16:03 Drug: Zofran (Ondansetron) 4 mg Route: IVP; Site: right antecubital; jb4 16:30 Follow up: Response: No adverse reaction; Marked relief of symptoms jb4 Disposition Summary: 11/13/21 18:30 Discharge Ordered Location: Home kdr Problem: new kdr Symptoms: have improved kdr Condition: Stable kdr Diagnosis - Right flank pain kdr Followup: kdr - With: Ryan Ulrich MD - When: 2 - 3 days - Reason: If symptoms return, Further diagnostic work-up, Recheck today's complaints, Continuance of care, Re-evaluation by your physician Discharge Instructions: - Discharge Summary Sheet kdr - Abdominal Pain, Adult, [id number] kdr - Flank Pain, Adult, [id number] kdr Forms: - Medication Reconciliation Form kdr - Thank You Letter kdr Prescriptions: - Tramadol 50 mg Oral Tablet - take 1 tablet by ORAL route every 8 hours as needed at night; 12 tablet; kdr Refills: 0, Product Selection Permitted - Zofran 4 mg Oral Tablet - take 1 tablet by ORAL route every 4-6 hours As needed; 12 tablet; Refills: 0, kdr Product Selection Permitted - Ibuprofen 600 mg Oral Tablet - take 1 tablet by ORAL route every 6 hours As needed take with food in the day kdr as needed for pain; 15 tablet; Refills: 0, Product Selection Permitted Signatures: Dispatcher [employer] Artis Crawford MD MD kdr Jacey Chopra RN RN aa5 Stephen La RN RN jb4 Darlene Lazo RN ss Corrections: (The following items were deleted from the chart) 15:30 PMHx: None; [email or web address] aa5
--- NOTE | 2021-11-13 18:31 | ER ---
Nurse's Notes [facility] Name: Jayson Melendez Age: 26 yrs Sex: Male : 1995 Arrival Date: 11/13/2021 Time: 15:22 Bed 10 Private MD: Diagnosis: Right flank pain Presentation: 11/13 15:31 Chief complaint: Patient states: right sided abd pain, sent here by Dr. Ulrich to r/o aa5 appendicitis. Coronavirus screen: At this time, the client does not indicate any symptoms associated with coronavirus-19. Ebola Screen: Patient denies travel to an Ebola-affected area in the 21 days before illness onset. Initial Sepsis Screen: Does the patient meet any 2 criteria? No. Patient's initial sepsis screen is negative. Does the patient have a suspected source of infection? No. Patient's initial sepsis screen is negative. Risk Assessment: Do you want to hurt yourself or someone else? Patient reports no desire to harm self or others. Onset of symptoms was October 2021. 15:31 Method Of Arrival: Ambulatory aa5 15:31 Acuity: GIANCARLO 3 aa5 Historical: - Allergies: 15:30 PENICILLINS; aa5 - Home Meds: 15:30 levothyroxine 50 mcg tab 1 tab once daily [Active]; aa5 15:31 gabapentin 100 mg oral tab as needed [Active]; aa5 - PMHx: 15:30 Hypothyroidism; aa5 15:31 Chronic back pain; aa5 - PSHx: 15:30 None; aa5 - Immunization history:: Adult Immunizations unknown. - Social history:: Smoking status: Patient reports the use of cigarette tobacco products, smokes one pack cigarettes per day. Screenin:40 Abuse screen: Denies threats or abuse. Nutritional screening: No deficits noted. jb4 Tuberculosis screening: No symptoms or risk factors identified. Fall Risk None identified. Assessment: 15:40 General: Appears in no apparent distress. uncomfortable, Behavior is calm, cooperative, jb4 appropriate for age. Pain: Complains of pain in anterior aspect of right lateral abdomen Pain does not radiate. Pain currently is 7 out of 10 on a pain scale. Neuro: Level of Consciousness is awake, alert, obeys commands, Oriented to person, place, time, situation. Cardiovascular: Patient's skin is warm and dry. Respiratory: Airway is patent Respiratory effort is even, unlabored, Respiratory pattern is regular, symmetrical. GI: Abdomen is flat, non-distended, Abd is soft X 4 quads Abdomen is tender to palpation in right lower quadrant and left lower quadrant. Derm: Skin is intact, Skin is pink, warm \\T\\ dry. Musculoskeletal: Circulation, motion, and sensation intact. Range of motion: intact in all extremities. 16:33 Reassessment: Patient appears in no apparent distress at this time. Patient and/or jb4 family updated on plan of care and expected duration. Pain level reassessed. Patient is alert, oriented x 3, equal unlabored respirations, skin warm/dry/pink. Patient states feeling better. 18:39 Reassessment: Patient appears in no apparent distress at this time. Patient and/or jb4 family updated on plan of care and expected duration. Pain level reassessed. Patient is alert, oriented x 3, equal unlabored respirations, skin warm/dry/pink. Vital Signs: 15:31 BP 121 / 67; Pulse 95; Resp 16 S; Temp 99.3(TE); Pulse Ox 100% on R/A; Weight 52.21 kg aa5 (R); Height 5 ft. 8 in. (172.72 cm) (R); 16:33 BP 111 / 67; Pulse 58; Resp 16; Pulse Ox 100% on R/A; jb4 18:39 BP 122 / 71; Pulse 59; Resp 16; Pulse Ox 100% on R/A; jb4 15:31 Body Mass Index 17.50 (52.21 kg, 172.72 cm) aa5 ED Course: 15:22 Patient arrived in ED. rg4 15:27 Artis Crenshaw MD is Attending Physician. kdr 15:29 Arm band placed on. aa5 15:32 Triage completed. aa5 15:33 Stephen La, DEO is Primary Nurse. jb4 15:40 Patient has correct armband on for positive identification. Bed in low position. Call [facility] light in reach. Side rails up X 1. 15:40 Initial lab(s) drawn, by me, sent to lab. Inserted saline lock: 18 gauge in right 4 antecubital area, using aseptic technique. Blood collected. 16:02 COVID-19 SARS RT PCR (Document "Date of Onset" if Symptomatic) Sent. jb4 17:35 CT Abd/Pelvis - IV Contrast Only In Process Unspecified. EDMS 18:30 Ryan Ulrich MD is Referral Physician. kdr 18:39 No provider procedures requiring assistance completed. IV discontinued, intact, jb4 bleeding controlled, No redness/swelling at site. Pressure dressing applied. Administered Medications: 15:37 Not Given (Physician Discretion): Xopenex (levalbuterol) (3) 1.25 mg Inhalation once ss 15:37 Not Given (Physician Discretion): SOLU-Medrol (methylPrednisoLONE) 60 mg IVP once ss 16:02 Drug: NS 0.9% 1000 ml Route: IV; Rate: 1 bolus; Site: right antecubital; jb4 17:00 Follow up: Response: No adverse reaction; Marked relief of symptoms; IV Status: jb4 Completed infusion; IV Intake: 1000ml 16:03 Drug: Zofran (Ondansetron) 4 mg Route: IVP; Site: right antecubital; jb4 16:30 Follow up: Response: No adverse reaction; Marked relief of symptoms jb4 Medication: 15:40 VIS not applicable for this client. jb4 Intake: 17:00 IV: 1000ml; Total: 1000ml. jb4 Outcome: 18:30 Discharge ordered by . kdr 18:39 Discharged to home ambulatory. jb4 18:39 Condition: stable 18:39 Discharge instructions given to patient, Instructed on discharge instructions, follow up and referral plans. medication usage, Demonstrated understanding of instructions, follow-up care, medications, Prescriptions given X 3. 18:40 Patient left the ED. jb4 Signatures: Dispatcher [employer] EDMS Artis Crenshaw MD MD kdr Jacey Chopra, RN RN aa5 Clarice Arnold James, RN RN jb4 Darlene Lazo RN ss Corrections: (The following items were deleted from the chart) 15:31 15:30 PMHx: None; benedicto diane
[2021-11-13 19:03] VITALS: TEMP 99.3; O2SAT 100
[2021-11-13 19:06] VITALS: BP 122/71
== END 2021-11-13 18:40 | disposition home or self-care (01) ==
LOC: ER 15:21
DX: R10.9 Unspecified abdominal pain (principal); E03.9 Hypothyroidism, unspecified; F17.210 Nicotine dependence, cigarettes, uncomplicated; Z88.0 Allergy status to penicillin; Z20.822 Contact with and (suspected) exposure to COVID-19
CPT/HCPCS: 96361; 85025; 36415; 81003; 83690; 80053; 74177; 96374; 99284; U0003; Q9967; J7030; J2405